=== PATIENT | female | born 1995 | race Caucasian/White ===

== ENCOUNTER → 2019-07-27 11:38 | Outpatient (BNVA) | payer SELFPAY | PROVIDERS: Family Provider Family Medicine; PCP Nurse Practitioner Family; Visit Provider Nurse Practitioner Family | DX: N30.90 Cystitis, unspecified without hematuria (principal); B37.3 Candidiasis of vulva and vagina | CPT/HCPCS: 80053; 81003; 87077; 87086; 87186 ==

== ENCOUNTER → 2019-08-03 14:01 | Outpatient (BNVA) | payer SELFPAY | PROVIDERS: Family Provider Family Medicine; PCP Nurse Practitioner Family; Visit Provider Nurse Practitioner Family | DX: R10.9 Unspecified abdominal pain (principal) | CPT/HCPCS: 80053; 81000; 81025; 85025; 86308; 87071; 87880 ==

== ENCOUNTER → 2019-10-19 11:22 | Outpatient (BNVA) | payer SELFPAY | PROVIDERS: Family Provider Family Medicine; PCP Nurse Practitioner Family; Visit Provider Nurse Practitioner Family | DX: R11.2 Nausea with vomiting, unspecified (principal) | CPT/HCPCS: 80053; 81003; 81025; 87086 ==

== ENCOUNTER → 2019-11-30 12:00 | Outpatient (BNVA) | payer SELFPAY | PROVIDERS: Family Provider Family Medicine; PCP Nurse Practitioner Family; Visit Provider Family Medicine | DX: N39.0 Urinary tract infection, site not specified (principal); Z30.09 Encounter for other general counseling and advice on contraception | CPT/HCPCS: 81025 ==

== ENCOUNTER → 2019-12-23 14:19 | Outpatient (BNVA) | payer SELFPAY | PROVIDERS: Family Provider Family Medicine; PCP Nurse Practitioner Family; Visit Provider Family Medicine | DX: M79.604 Pain in right leg (principal); S82.101D Unspecified fracture of upper end of right tibia, subsequent encounter for closed fracture with routine healing; X58.XXXD Exposure to other specified factors, subsequent encounter | CPT/HCPCS: 73590 ==

== ENCOUNTER → 2020-01-05 12:13 | Outpatient (BNVA) | payer SELFPAY | PROVIDERS: Family Provider Family Medicine; PCP Nurse Practitioner Family; Visit Provider Nurse Practitioner Family | DX: N76.4 Abscess of vulva (principal); Z68.22 Body mass index [BMI] 22.0-22.9, adult | CPT/HCPCS: 87491; 87591; 87661; 88175 ==

== ENCOUNTER → 2020-03-31 16:03 | Outpatient (BNVA) | payer SELFPAY | PROVIDERS: Family Provider Family Medicine; PCP Nurse Practitioner Family; Visit Provider Nurse Practitioner Family | DX: M79.605 Pain in left leg (principal) | CPT/HCPCS: 73590 ==

== ENCOUNTER 2020-04-18 14:04 | Outpatient (CLI) | payer SELFPAY ==
--- NOTE | 2020-04-18 14:14 | USCV_ITS ---
Chris Tanisha Age: 24 Gender: F : 1995 Exam Date: 04/18/2020 14:42 Ordering Phys: Emily Hooker INFANTRYMAN INFANTRYMAN Technologist: Kayla Lopez Exam Location: [facility] [place]_ Indication: LLE PAIN HISTORY: Lower extremity pain. PROCEDURES: Venous duplex imaging was performed in only the left lower extremity. The following venous structures were evaluated: common femoral vein, profunda vein, proximal portion of the greater saphenous vein, superficial femoral vein, and the popliteal vein. In addition, the posterior tibial veins were evaluated. In addition, the posterior tibial and peroneal trunk were evaluated. FINDINGS: No evidence of DVT seen in any vessel visualized at this time. CONCLUSIONS No evidence of left lower extremity DVT. Drew Le MD (Electronically Signed) Final Date: 18 April 2020 17:18 S
== END 2020-04-18 14:05 | disposition home or self-care (01) ==
LOC: RAD 14:07
PROVIDERS: PCP Family Medicine; Visit Provider Nurse Practitioner Family
DX: M79.605 Pain in left leg (principal)
CPT/HCPCS: 93971

== ENCOUNTER → 2020-06-22 16:39 | Outpatient (BNVA) | payer SELFPAY | PROVIDERS: PCP Family Medicine; Visit Provider Nurse Practitioner Family | DX: Z11.3 Encounter for screening for infections with a predominantly sexual mode of transmission (principal); R53.83 Other fatigue; K04.7 Periapical abscess without sinus | CPT/HCPCS: 80053; 81025; 82306; 82607; 84443; 85025; 86592; 87491; 87591; 87661 ==

== ENCOUNTER → 2020-08-07 11:40 | Outpatient (BNVA) | payer OTHER, SELFPAY | PROVIDERS: PCP Family Medicine; Visit Provider Nurse Practitioner Family | DX: Z20.822 Contact with and (suspected) exposure to COVID-19 (principal) | CPT/HCPCS: 87635 ==

== ENCOUNTER → 2020-12-13 13:29 | Outpatient (BNVA) | payer SELFPAY | PROVIDERS: PCP Family Medicine; Visit Provider Nurse Practitioner Family | DX: N89.8 Other specified noninflammatory disorders of vagina (principal); Z11.3 Encounter for screening for infections with a predominantly sexual mode of transmission; Z72.51 High risk heterosexual behavior | CPT/HCPCS: 87491; 87591; 87661 ==

== ENCOUNTER 2021-09-09 06:34 | Emergency (ER) | payer MEDICAID, SELFPAY ==
[2021-09-09 06:40] VITALS: BP 110/74; PULSE 75; RESP 16; TEMP 36.6; O2SAT 100; BMI 21.4
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
[2021-09-09] MEDS: ketorolac 60 mg/2 mL INJ IM (07:24)
== END 2021-09-09 07:58 | disposition home or self-care (01) ==
PROVIDERS: Emergency Provider Physician Assistant; PCP Family Medicine
DX: S86.911A Strain of unspecified muscle(s) and tendon(s) at lower leg level, right leg, initial encounter (principal); X50.1XXA Overexertion from prolonged static or awkward postures, initial encounter; M25.561 Pain in right knee
CPT/HCPCS: 73562; 96372; 99283; E0114; J1885

== ENCOUNTER → 2021-10-03 11:30 | Outpatient (BNVA) | payer MEDICAID, SELFPAY | PROVIDERS: PCP Nurse Practitioner Family; Visit Provider Registered Nurse Neonatal Intensive Care | DX: Z20.822 Contact with and (suspected) exposure to COVID-19 (principal) | CPT/HCPCS: 87635 ==

== ENCOUNTER 2024-08-28 12:53 | Emergency (ER) | payer BC, MEDICAID, SELFPAY ==
[2024-08-28 12:55] VITALS: BP 106/70; PULSE 68; RESP 16; TEMP 36.7; O2SAT 100; BMI 25.4
--- NOTE | 2024-08-28 13:19 | ED_ITS ---
HPI - Anxiety General: Chief Complaint: Anxiety Stated Complaint: anxiety attack Time Seen by Provider: 08/28/24 13:05 History of Present Illness: Patient is a 28-year-old female with longstanding history of anxiety that presents to the ED due to anxiety and out of medications. She states she took her last Ativan this morning. Patient and partner just moved back here from [place]. She is not having suicidal thoughts or ideas. She feels like she is having a panic attack. She did attempt to go to a local doctor this a.m. She is willing to follow-up with doctor next week and establish care. No chest pain or palpitations. Shortness of breath is associated with anxiety. Associated symptoms: Deny chest pain, chills, fever(s), headache(s), nausea, palpitations or vomiting Related Data Previous Rx's ?Medication ?Instructions ?Recorded loratadine 10 mg tablet 10 mg PO DAILY allergies #90 tabs 09/27/21 hydroxyzine pamoate 50 mg capsule 50 mg PO QID PRN anx iety #120 caps 10/02/21 aripiprazole 5 mg tablet 5 mg PO .every evening 90 da ys #90 05/28/22 tabs duloxetine 60 mg capsule,delayed 60 mg PO DAILY 90 day s #90 caps 05/28/22 release (Cymbalta) olanzapine 5 mg tablet 5 mg PO BID PRN anxiety #10 tabs 08/28/24 Allergies Allergy/AdvReac Type Severity Reaction Status Date / Time No Known Allergies Allergy Verified 10/02/21 08:54 Review of Systems General: Reports: 10 or more systems reviewed and unremarkable except in HPI and below Const: Denies: fever(s), chills or body aches Eyes: Denies: change in vision or blurry vision ENMT: Denies: throat pain or odynophagia Card: Denies: chest pain or palpitations Resp: Denies: dyspnea or productive cough GI: Denies: abdominal pain, nausea or vomiting : Denies: flank pain Musc: Reports: neck pain, back pain and joint pain Skin/Breast: Denies: rash or pruritus Neuro: Denies: headache(s) or numbness in extremities Psych: Reports: anxiety and panic attacks; Denies: depression, mood swings, hopelessness, suicidal ideation or homicidal ideation Endo: Denies: polyuria or polydipsia PFSH ED PFS: Medical History (Updated 08/28/24 @ 13:32 by RADHA Knight) Allergic rhinitis Acute pharyngitis Status post closed fracture of right tibia control counseling Surgical History Hx of cholecystectomy Social History (Updated 10/02/21 @ 08:59 by Bc Saldana LPN) Smoking and tobacco/nicotine status: never used tobacco/nicotine Quit status (tobacco/nicotine): has tried quititng Number of times tried to quit tobacco: 3 Second hand smoke exposure: Yes Alcohol intake: never Substance/Drug Use: never Lives independently: Yes Household members: children Marital status: Single Current occupational status: unemployed Current gender identity: Female Physical Exam Const: COMMON NORMALS: no acute distress, average body habitus and patient oriented x3 GENERAL APPEARANCE: cooperative and comfortable ORIENTATION/CONSCIOUSNESS: Yes awake, Yes oriented to person and Yes oriented to place HENMT: COMMON NORMALS: normocephalic and atraumatic HEAD & SCALP: normocephalic and atraumatic Neck/C-Spine: COMMON NORMALS: full ROM and no lymphadenopathy Chest: COMMONS NORMALS: normal inspection of the chest and normal palpation of entire chest wall Resp: COMMON NORMALS: normal respiratory effort, No retractions and clear to auscultation bilaterally AUSCULTATION: clear to auscultation bilaterally Cardio: COMMON NORMALS: regular rate, regular rhythm, S1 normal heart sound present and S2 normal heart sound present RATE: regular rate RHYTHM: regular rhythm HEART SOUNDS: S1 normal heart sound present and S2 normal heart sound present GI: COMMON NORMALS: Normal to inspection, nondistended, normoactive bowel kay nds present, Soft to palpation and non-tender PALPATION: Yes Soft to palpation Neuro: COMMON NORMALS: patient oriented x3 SENSORIUM/ORIENTATION: Yes oriented to person and Yes oriented to place MOTOR EXAM: 5/5 motor strength present throughout Psych: COMMON NORMALS: mental status grossly normal, Normal thought process present, cooperative and speech normal SPEECH: Yes normal speech MOOD & AFFECT: Yes depressed mood, Yes anxious and Yes sad THOUGHT PROCESS: Normal thought process present and racing thoughts THOUGHT CONTENT: Yes Normal thought content present INSIGHT: Good insight present (Psych) Course Vital Signs: Vital signs: Vital Signs Temperature 98.1 F 08/28/24 12:55 Pulse Rate 68 08/28/24 12:55 Respiratory Rate 16 08/28/24 12:55 Blood Pressure 106/70 08/28/24 12:55 Pulse Oximetry 100 08/28/24 12:55 Oxygen Delivery Me thod Room Air 08/28/24 12:55 MDM - Anxiety Medical Decision Making Patient is a 28-year-old female with longstanding history of anxiety. Discussed with patient scheduled meds. We are unable to write for a scheduled medication outpatient, however will give x 1 here with olanzapine, and prescribe olanzapine short course for follow-up first of next week. Patient states understanding. No radiology studies performed this visit Discharge Plan Discharge Patient Disposition: Home Clinical Impression: Acute anxiety, Panic disorder Condition: Stable Prescriptions: New olanzapine 5 mg tablet 5 mg PO BID PRN (Reason: anxiety) Qty: 10 0RF Rx Instructions: Take 1 by mouth up to 2x a day for anxiety No Action hydroxyzine pamoate 50 mg capsule 50 mg PO QID PRN (Reason: anxiety) Qty: 120 2RF loratadine 10 mg tablet 10 mg PO DAILY Qty: 90 0RF aripiprazole 5 mg tablet 5 mg PO .every evening 90 Days Qty: 90 0RF duloxetine [Cymbalta] 60 mg capsule,delayed release(DR/EC) 60 mg PO DAILY 90 Days Qty: 90 0RF Discharge Orders: Discharge ED (Routine); Ordered 08/28/24 Ordered By: Samaria Cisneros Referrals: Di Hyde, ANALYTICS SENIOR MANAGER [Primary Care Provider, Family Practice] Discharge Diet: As Directed Discharge Activity: Increase activity as tolerated Patient Instructions: Panic Attack (ED) Activity Restrictions/Additional Instructions: Take a walk today, and daily. This will help with anxiety. Eat proper nutrition, drink appropriate amount of water/noncaffeinated beverage. Follow-up with local physician next week for discussion of your anxiety. We are happy to help you today. Please return to the ED for worsening symptoms. Print Language: Thai Coding Level of Care Code ED Laundry Helper for Aziza Ley
[2024-08-28] MEDS: OLANZapine 5 mg ODT PO (13:25)
[2024-08-28] MEDS: LORazepam 1 mg Tablet PO (13:25)
[2024-08-28 13:59] VITALS: BP 108/64; PULSE 62; RESP 16; O2SAT 100
== END 2024-08-28 13:59 | disposition home or self-care (01) ==
PROVIDERS: Emergency Provider Physician Assistant; PCP Nurse Practitioner Family
DX: F41.8 Other specified anxiety disorders (principal); F41.0 Panic disorder [episodic paroxysmal anxiety]
CPT/HCPCS: 99283; J9999

== ENCOUNTER 2025-01-21 10:10 | Emergency (ER) | payer BC, MEDICAID, SELFPAY ==
[2025-01-21 10:21] VITALS: BP 120/73; PULSE 75; RESP 18; TEMP 36.7; O2SAT 99; BMI 20.9
--- NOTE | 2025-01-21 10:25 | ED_ITS ---
HPI - Abdominal Pain 2 General: Chief Complaint: Abdominal Pain Stated Complaint: Upper ABD Pain going into L side Time Seen by Provider: 01/21/25 10:25 History of Present Illness: 29-year-old female presents emergency ro om left flank pain the last few days. She has some discolored urine and some mild dysuria. No hematuria. No fever sweats or chills. She thinks she may possibly be . Associated Symptoms: Reports dysuria and nausea; Denies chills, fever(s) and vomiting Related Data Previous Rx's ?Medication ?Instructions ?Recorded loratadine 10 mg tablet 10 mg PO DAILY allergies #90 tabs 09/27/21 bupropion HCl 150 mg 24 hr tablet, 150 mg PO QAM #30 t abs 09/20/24 extended release (Wellbutrin XL) quetiapine 100 mg tablet (Seroquel) See Rx Instruction s PO DAILY #60 09/20/24 tabs hydrocodone 5 mg-acetaminophen 325 1 tab PO Q6H PRN pa in #10 tabs 01/21/25 mg tablet promethazine 25 mg tablet 25 mg PO Q6H PRN nausea and 01/21/25 vomiting #20 tabs Allergies Allergy/AdvReac Type Severity Reaction Status Date / Time No Known Allergies Allergy Verified 09/20/24 08:54 Review of Systems 2 Const: Denies: fever(s) or chills Card: Denies: chest pain Resp: Denies: dyspnea GI: Reports: abdominal pain and nausea; Denies: vomiting : Reports: flank pain and dysuria; Denies: urinary frequency or urinary urgency Musc: Denies: neck pain or back pain Skin/Breast: Denies: rash PFSH ED 2 PFSH: Medical History Psychiatric care Allergic rhinitis Acute pharyngitis Status post closed fracture of right tibia control counseling Surgical History Hx of cholecystectomy Social History Smoking and tobacco/nicotine status: unknown if used tobacco/nicotine Quit status (tobacco/nicotine): has tried quititng Number of times tried to quit tobacco: 3 Second hand smoke exposure: Yes Alcohol intake: never Substance/Drug Use: never Lives independently: Yes Household members: children Marital status: Single Current occupational status: unemployed Current gender identity: Female Physical Exam 2 Const: COMMON NORMALS: no acute distress GENERAL APPEARANCE: cooperative and comfortable ORIENTATION/CONSCIOUSNESS: Yes awake, Yes oriented to person, Yes oriented to place and Yes oriented to time HENMT: COMMON NORMALS: normocephalic, atraumatic and hearing grossly normal bilaterally HEAD & SCALP: normocephalic and atraumatic Resp: COMMON NORMALS: normal respiratory effort, No retractions, No use of accessory muscles and clear to auscultation bilaterally AUSCULTATION: clear to auscultation bilaterally Cardio: COMMON NORMALS: regular rate, regular rhythm and No murmurs present (Cardio) RATE: regular rate RHYTHM: regular rhythm GI: COMMON NORMALS: No hepatosplenomegaly present AUSCULTATION: Yes normoactive bowel sounds PALPATION: Yes Tenderness to palpation present (GI) (Epigastric left upper quadrant), No Guarding due to palpation present (GI) and Yes No hepatosplenomegaly present Extremity: COMMON NORMALS: normal to inspection, capillary refill normal, no clubbing, cyanosis or edema, no calf tenderness and no pedal edema Neuro: SENSORIUM/ORIENTATION: Yes oriented to person, Yes oriented to place and Yes oriented to time Skin: COMMON NORMALS: no rashes or lesions noted GENERAL SKIN EXAM: no rashes or lesions noted Course 2 Vital Signs: Vital signs: Vital Signs Temperature 98.1 F 01/21/25 10:21 Pulse Rate 57 L 01/21/25 13:26 Respiratory Rate 16 01/21/25 13:26 Blood Pressure 138/73 01/21/25 13:26 Pulse Oximetry 100 01/21/25 13:26 Oxygen Delivery Me thod Room Air 01/21/25 10:37 MDM - Abdominal Pain Medical Decision Making Patient initially seen and evaluated with abdominal pain. UA CBC CMP urine ordered. Evaluate for nephrolithiasis pyelonephritis cystitis pancreatitis. exam rules out bowel obstruction. By history it is unlikely she has diverticulitis. No leukocytosis lipase elevated CT does not show any acute pathology. . Patient denies regular alcohol use will discharge home Glucotide 24 to 40 hours. Patient given prescription for hydrocodone and promethazine. Avoid alcohol and cannabis use advance diet as tolerated. Medical Records I reviewed the patient's medical records. Lab Data I reviewed the patient's lab results. 01/21/25 10:33 01/21/25 10:33 Labs/Radiology: Radiology Impressions Abdomen/Pelvis CT 01/21/25 11:02 IMPRESSION: 1. No renal obstruction. 2. Normal appendix. 3. Small amount of physiologic free fluid in the pelvis. 4. Pelvic venous congestion syndrome. 5. No GI tract obstruction. 6. Prior cholecystectomy. Laboratory Results WBC 7.91 10^3/uL (3.29-11.43) 01/21/25 10:33 RBC 4.70 10^6/uL (3.85-5.65) 01/21/25 10:33 Hgb 14.90 g/dL (11.27-16.99) 01/21/25 10:33 Hct 43.3 % (36-47) 01/21/25 10:33 MCV 92.1 fl (85-98) 01/21/25 10:33 MCH 31.7 pg (27-33) 01/21/25 10:33 MCHC 34.4 g/dL (30-55) 01/21/25 10:33 RDW 12.2 % (12.1-15.1) 01/21/25 10:33 Plt Count 214 10^3/cmm (157-399) 01/21/25 10:33 MPV 9.5 fL (7.4-10.4) 01/21/25 10:33 Neut % (Auto) 72.3 % 01/21/25 10:33 Lymph % (Auto) 19.3 % 01/21/25 10:33 [place] % (Auto) 6.4 % 01/21/25 10:33 Eos % (Auto) 1.3 % 01/21/25 10:33 Baso % (Auto) 0.4 % 01/21/25 10:33 Neut # (Auto) 5.72 10^3/uL (1.8-7.7) 01/21/25 10:33 Lymph # (Auto) 1.5 10^3/uL (0.8-4.8) 01/21/25 10:33 [place] # (Auto) 0.5 10^3/uL (0.2-0.9) 01/21/25 10:33 Eos # (Auto) 0.1 10^3/uL (0.0-0.8) 01/21/25 10:33 Baso # (Auto) 0.0 10^3/uL (0.0-0.1) 01/21/25 10:33 Nucleated RBC % (auto) 0 % 01/21/25 10: Nucleated RBCs # 0.0 /100WBC 01/21/25 10:33 Sodium 139 mmol/L (136-145) 01/21/25 10:33 Potassium 3.4 mmol/L (3.5-5.1) L 01/21/25 10:33 Chloride 102 mmol/L (98-107) 01/21/25 10:33 Carbon Dioxide 25 mmol/L (22-29) 01/21/25 10:33 Anion Gap 15.4 (5-19) 01/21/25 10:33 BUN 3 mg/dL (6-20) L 01/21/25 10:33 Creatinine 0.6 mg/dL (0.5-0.9) 01/21/25 10:33 GFR Calculation 118.2 mL/min (90-130) 01/21/25 10:33 Glucose 81 mg/dL (65-115) 01/21/25 10:33 Calculated Osmolality 284 mOsm/kg (285-295) L 01/21/25 10:33 Calcium 9.3 mg/dL (8.5-10.5) 01/21/25 10: Total Bilirubin 0.5 mg/dL (0.15-1.2) 01/21/25 10:33 AST 12 U/L (0-32) 01/21/25 10: ALT 9 U/L (0-33) 01/21/25 10:33 Alkaline Phosphatase 76 U/L (35-105) 01/21/25 10:33 Total Protein 7.1 g/dL (6.6-8.7) 01/21/25 10: Albumin 4.4 g/dL (3.5-5.2) 01/21/25 10: Globulin 2.7 g/dL (1.3-4.6) 01/21/25 10:33 Lipase 151 U/L (13-60) H 01/21/25 10:33 HCG, Qual Negative (Negative) 01/21/25 10:33 Urine Color Yellow (Yellow) 01/21/25 11:30 Urine Appearance Clear (CLEAR) 01/21/25 11:30 Urine pH 7.0 (5-7) 01/21/25 11:30 Ur Specific [place] 1.001 (1.005-1.030) L 01/21/25 11:30 Urine Protein Negative (Negative) 01/21/25 11:30 Urine Glucose (UA) Negative (Normal) 01/21/25 11:30 Urine Ketones Negative (Negative) 01/21/25 11:30 Urine Blood Negative (Negative) 01/21/25 11:30 Urine Nitrate Negative (Negative) 01/21/25 11:30 Urine Bilirubin Negative (Negative) 01/21/25 11:30 Urine Urobilinogen 0.2 mg/dL (Negative) 01/21/25 11:30 Ur Leukocyte Esterase Negative (Negative) 01/21/25 11:30 Urine RBC 0-2 /hpf (0-2) 01/21/25 11:30 Urine WBC 0-5 /hpf (0-5) 01/21/25 11:30 Ur Squamous Epith Cells 0-5 /hpf (0-5) 01/21/25 11:30 Amorphous Sediment Not Reportable 01/21/25 11:30 Urine Bacteria None seen /hpf (NONE) 01/21/25 11:30 Hyaline Casts 0-4 /lpf H 01/21/25 11:30 All radiology interpretation(s) finalized by discharge Discharge Plan Discharge Patient Disposition: Home Clinical Impression: Pancreatitis Condition: Stable Prescriptions: New hydrocodone-acetaminophen 5-325 mg tablet 1 tab PO Q6H PRN (Reason: pain) Qty: 10 0RF promethazine 25 mg tablet 25 mg PO Q6H PRN (Reason: nausea and vomiting) Qty: 20 0RF No Action loratadine 10 mg tablet 10 mg PO DAILY Qty: 90 0RF quetiapine [Seroquel] 100 mg tablet See Rx Instructions PO DAILY Qty: 60 0RF Rx Instructions: take 100 to 200 mg at bed time bupropion HCl [Wellbutrin XL] 150 mg tablet extended release 24 hr 150 mg PO QAM Qty: 30 0RF Discharge Orders: Discharge ED (Routine); Ordered 01/21/25 Ordered By: Freddy Lopez Referrals: Claudio,Kim, TOURIST ADVISER-C [Primary Care Provider, Family Practice] Discharge Diet: Usual diet Discharge Activity: Resume usual activity Patient Instructions: Abdominal Pain (ED), Opioid Safety, Pain Management, Patient Portal & [place] Instructions Activity Restrictions/Additional Instructions: Thank you for choosing [facility] for your healthcare needs today. It is very important that you follow up as instructed or that you return to the Emergency Department should you have concerns or if your condition changes or worsens in any way. Emergency department visits are focused on emergent conditions, in some cases you may require further evaluation on an outpatient basis. You are seen in the emergency room with complaints of abdominal pain. Laboratory evaluation shows you have a mild pancreatitis. Recommend clear liquid diet for the next 2 to 3 days and advance as tolerated. You are given promethazine hydrocodone for nausea vomiting and pain respectively. This open you were started or you are unable to keep food or liquids down return to the emergency room. Urine testing and testing were negative. (Please note that included in your discharge packet is information concerning opioid safety and pain management. This information is given to all patients were discharged from the ER regardless of their discharge diagnosis or the medicines they usually take or are prescribed.) Print Language: Lithuanian Coding Level of Care Code ED Administrative Assistant Front Desk for Aziza Ley
[2025-01-21 10:37] VITALS: BP 120/73; PULSE 74; RESP 14; O2SAT 100
[2025-01-21 10:38] LABS: Hematocrit 43.3 % (36-47); Hemoglobin 14.90 g/dL (11.27-16.99); Mean Corpuscular HGB Conc 34.4 g/dL (30-55); Mean Corpuscular Hemoglobin 31.7 pg (27-33); Mean Corpuscular Volume 92.1 fl (85-98); Nucleated Red Blood Cells % 0 %; Platelet Count 214 10^3/cmm (157-399); Red Blood Count 4.70 10^6/uL (3.85-5.65); White Blood Count 7.91 10^3/uL (3.29-11.43)
[2025-01-21 10:48] LABS: HCG, Serum Qual Negative (Negative)
[2025-01-21] MEDS: ondansetron 2 mg/ML SDV 2 mL 4 MG IVP (10:52)
[2025-01-21 10:54] LABS: Alanine Aminotransferase 9 U/L (0-33); Albumin Level 4.4 g/dL (3.5-5.2); Alkaline Phosphatase 76 U/L (35-105); Anion Gap 15.4 (5-19); Aspartate Amino Transferase 12 U/L (0-32); Blood Urea Nitrogen 3 mg/dL (6-20); Calcium 9.3 mg/dL (8.5-10.5); Carbon Dioxide 25 mmol/L (22-29); Chloride 102 mmol/L (98-107); Creatinine Clr Calc Pharmacy 133.8206; Globulin 2.7 g/dL (1.3-4.6); Glucose 81 mg/dL (65-115); Lipase 151 U/L (13-60); Osmolality Calculated 284 mOsm/kg (285-295); Potassium 3.4 mmol/L (3.5-5.1); Sodium 139 mmol/L (136-145); Total Protein 7.1 g/dL (6.6-8.7)
--- NOTE | 2025-01-21 11:02 | CT_ITS ---
WS: [id number] CT ABDOMEN AND PELVIS WITH CONTRAST HISTORY: abd pain TECHNIQUE: Imaging performed of the abdomen and pelvis with IV contrast. Single phase imaging of the abdomen. Coronal and sagittal reformats are submitted. All CT scans at [facility] use at least one of these dose optimization techniques: automated exposure control; mA and/or kV adjustment per patient size (includes targeted exams where dose is matched to clinical indication); or iterative reconstruction. IV CONTRAST: Omnipaque 350; 100 mL IV. Oral contrast: No DLP: 377.96 mGy.cm COMPARISON: 03/30/2016 Lower thorax: Lung bases are clear. Heart is normal size. No hiatal hernia. Liver/biliary system: Normal size with no intrahepatic dilatation. Gallbladder: Prior cholecystectomy. Pancreas: Normal size pancreas and pancreatic duct. No adjacent inflammation. Spleen: Normal size with granuloma. Adrenal glands: Normal. Right kidney: Normal. Left kidney: Normal. Aorta: Normal. Lymphadenopathy: None. Free fluid: Small amount of free fluid in the pelvis. GI tract: No GI tract obstruction. Normal appendix. Abdominal wall: Unremarkable abdominal wall. No hernia. Pelvis: Uterus is midline. Small amount of fluid in the pelvis. Dilated ovarian veins. Venous enhancement surrounds the uterus. Findings of pelvic venous congestion syndrome. Urinary bladder is normal. Small follicles in each ovary. Bones: Unremarkable. CT/CT abdomen pelvis w con* [id number] IMPRESSION: 1. No renal obstruction. 2. Normal appendix. 3. Small amount of physiologic free fluid in the pelvis. 4. Pelvic venous congestion syndrome. 5. No GI tract obstruction. 6. Prior cholecystectomy.
[2025-01-21 11:23] VITALS: BP 106/62; PULSE 60; RESP 18; O2SAT 96
[2025-01-21 11:36] LABS: Glucose Urine UA Negative (Normal); Nitrate Urine Negative (Negative); Specific Gravity, Urine 1.001 (1.005-1.030)
[2025-01-21 11:41] LABS: Add Urine Microscopic? YES
[2025-01-21] MEDS: iohexol 350 mg/mL 500 mL Btl (per mL) IV (12:20)
[2025-01-21 13:26] VITALS: BP 138/73; PULSE 57; RESP 16; O2SAT 100
== END 2025-01-21 13:27 | disposition home or self-care (01) ==
PROVIDERS: Physician Assistant; Emergency Provider Family Medicine; PCP Nurse Practitioner Family
DX: K85.90 Acute pancreatitis without necrosis or infection, unspecified (principal); Z87.891 Personal history of nicotine dependence
CPT/HCPCS: 36415; 74177; 80053; 81001; 83690; 84703; 85025; 96374; 99285; J2405; J7030

== ENCOUNTER → 2025-01-31 15:00 | Outpatient (BNVA) | payer BC, MEDICAID, SELFPAY | PROVIDERS: PCP Nurse Practitioner Family; Visit Provider Nurse Practitioner Family | DX: R10.9 Unspecified abdominal pain (principal); Z09 Encounter for follow-up examination after completed treatment for conditions other than malignant neoplasm | CPT/HCPCS: 80053; 80061; 82150; 83690; 85025 ==

== ENCOUNTER 2025-02-21 15:04 | Outpatient (CLI) | payer BC, MEDICAID, SELFPAY | END 2025-02-21 15:05 | disposition home or self-care (01) | LOC: LAB 03-04 07:05 | PROVIDERS: PCP Nurse Practitioner Family; Visit Provider Nurse Practitioner Family | DX: R10.9 Unspecified abdominal pain (principal) | CPT/HCPCS: 80053; 82150; 83690; 85025 ==